=== PATIENT | female | born 1995 | race Caucasian/White ===

== ENCOUNTER 2023-09-28 02:23 | Emergency (ER) | payer BC ==
[2023-09-28 02:35] VITALS: BP 108/61; PULSE 83; RESP 18; TEMP 97.5; BMI 23.8
== END 2023-09-28 03:40 | disposition left against medical advice (07) ==
LOC: JER 02:23
DX: O26.891 Other specified pregnancy related conditions, first trimester (principal); R10.9 Unspecified abdominal pain; O20.9 Hemorrhage in early pregnancy, unspecified; Z3A.01 Less than 8 weeks gestation of pregnancy
CPT/HCPCS: 99281-25